=== PATIENT | female | born 1975 | race Caucasian/White ===

== ENCOUNTER 2022-10-24 20:15 | Emergency (ER) | payer BC, OTHER ==
[~2022-10-24] VITALS: Ht 167.6 cm; Wt 65.8 kg
--- NOTE | 2022-10-24 21:00 | NUR ---
CALLED FOR TRIAGE. NO ANSWER
[2022-10-24 22:26] VITALS: BP 134/73
[2022-10-24] MEDS ORDERED: CEPH500T PO (22:35)
--- NOTE | 2022-10-24 22:56 | NUR ---
PT OK TO DISCHARGE PER DR MEDINA. Patient discharged to home in stable condition. Written and verbal after care instructions given. Patient verbalizes understanding of instruction.Patient is awake and alert to self, day, and place. PT ambulatory with a steady gait
== END 2022-10-24 22:57 | disposition home or self-care (01) ==
LOC: ER 20:27
DX: O90.0 Disruption of cesarean delivery wound (principal); Z88.1 Allergy status to other antibiotic agents